=== PATIENT | male | born 1960 | race Caucasian/White ===

== ENCOUNTER 2019-06-04 13:08 | Emergency (ER) | payer OTHER, SELFPAY ==
--- NOTE | ~2019-06-04 | XR_ITS ---
EXAMINATION: XR chest 2V DATE: 06/04/2019 13:36 INDICATION: Dizziness. TECHNIQUE: Frontal and lateral views of the chest were obtained. COMPARISON: Chest 2 views 02/11/2017 FINDINGS: The chest demonstrates clear lungs without pneumonia, pleural effusion, or pneumothorax. Th e heart size is normal. IMPRESSION: 1. No acute cardiopulmonary disease. Reviewed, dictated and finalized at location A. [employer]
--- NOTE | 2019-06-04 13:12 | ECG_ITS ---
Measurements Intervals [place] Rate: 112 P: 61 SC: 208 QRS: -14 QRSD: 101 T: 107 QT: 320 QTc: 438 Interpretive Statements SINUS TACHYCARDIA LEFT VENTRICULAR HYPERTROPHY AND ST-T CHANGE BORDERLINE ST-T WAVE ABNORMALITY- ANTEROLATERAL LEADS ABNORMAL ECG Electronically Signed On 06-04-2019 14:18:28 [employer] by Basilio Felix D.O.
--- NOTE | 2019-06-04 13:17 | ED.ARRPALP ---
HPI - Arrhythmia/Palpitations General Chief Complaint: Weakness Stated Complaint: Heart Racing Time Seen by Provider: 06/04/19 13:16 Source: patient and RN notes reviewed Mode of arrival: ambulatory Limitations: no limitations History of Present Illness HPI narrative: A 58 y/o male presents to the ED with a rapid heart rate and palpitations beginning this morning. He states that his resting HR was between 100-110 and that he felt it palpitating this morning. He reports associated dizziness beginning today. He notes some chest congestion, SOB, a productive cough, chills, and a subjective fever since last night. He denies any N/V/D, body aches, CP, leg edema, or calf pain. MD complaint: rapid heart beat and palpitations Onset (ago): hour(s) (this morning) Context: occurred during rest Associated symptoms: cough (productive) and other (dizziness, chest congestion, SOB, chills, and a subjective fever) Related Data Home Medications Medication Instructions Recorded Confirmed fluticasone propionate 50 2 spray NASAL DAILY ml 02/15/19 mcg/actuation nasal spray,suspension lisinopril 20 mg tablet 20 mg PO DAILY 02/15/19 metoprolol tartrate 50 mg tablet 50 mg PO Q12H 02/15/19 Allergies Allergy/AdvReac Type Severity Reaction Status Date / Time albuterol Allergy Unknown Unknown Verified 06/04/19 13:30 fexofenadine Allergy Unknown Unknown Verified 06/04/19 13:30 mometasone furoate Allergy Unknown Unknown Verified 06/04/19 13:30 montelukast Allergy Unknown Unknown Verified 06/04/19 13:30 morphine Allergy Unknown Unknown Verified 06/04/19 13:30 Review of Systems Review of Systems: All systems reviewed & are unremarkable except as noted in HPI and below Constitutional: Constitutional: Denies body ache(s), Reports chills and Reports fever(s) (subjective) Cardiovascular: Cardiovascular: Denies chest pain, Reports rapid heart rate, Denies leg edema and Reports palpitations Respiratory: Respiratory: Reports chest congestion, Reports cough (productive) and Reports dyspnea Gastrointestinal: Gastrointestinal: Denies diarrhea, Denies nausea and Denies vomiting Musculoskeletal: Musculoskeletal: Denies other (calf pain) Neurologic: Reports dizziness PMFSH Past Medical History Medical History Anxiety Asthma Bronchitis Collar bone fracture Diverticulosis Eczema GERD (gastroesophageal reflux disease) History of pneumonia HTN (hypertension) Hx: UTI (urinary tract infection) Mild persistent asthma PAT (paroxysmal atrial tachycardia) Prostate cancer PVC (premature ventricular contraction) Seasonal allergic rhinitis SVT (supraventricular tachycardia) Surgical History Surgical History History of appendectomy Family History Family History Mother Hypertension Sibling Hypertension Father Hypertension Family history of ylsvq-[id number] deficiency Social History Social History Smoking status: Never smoker Alcohol intake: current Gender identity (if verbalized by the patient): Male Exam Const: General: healthy appearing and no acute distress Nutritional Appearance: well nourished HENMT: Mouth: Yes lip normal and Yes moist mucous membranes Eyes: Conjunctivae: conjunctivae normal Pupils: Equal, round and reactive pupils present Resp: Effort & Inspection: normal respiratory effort Auscultation: clear to auscultation bilaterally Cardio: Rate: tachycardic Rhythm: regular rhythm Heart sounds: no murmurs GI: GI Palp: Yes Soft to palpation and No Tenderness to palpation present (GI) Auscultation: normal bowel sounds Back/Spine/Pelvis: Other: Full ROM. Skin: General skin exam: normal color, dry skin and other (warm) Neuro: General: patient oriented x3 (alert) Speech: normal speech Extrem: General: full ROM Psych: Mental
[2019-06-04 13:26] VITALS: BP 116/78; PULSE 112; PULSE 115; RESP 18; TEMP 36.9; O2SAT 97
[2019-06-04 13:29] LABS: Basophils Percent Auto 0.2 % (0.2-1.2); Eosinophils Absolute Auto 0.2 K/mm3 (0-0.3); Eosinophils Percent Auto 2.8 % (0-4.4); Hematocrit 42.2 % (42.0-52.0); Hemoglobin 14.5 g/dL (14.0-18.0); Immature Granulocyte Absolute 0.01 K/mm3 (0.00-0.031); Immature Granulocyte Percent A 0.2 % (0-0.5); Lymphocytes Absolute Auto 0.29 K/mm3 (0.9-3.2); Lymphocytes Percent Auto 5.4 % (18.3-44.2); Mean Corpuscular HGB Conc 34.4 g/dl (32-36); Mean Corpuscular Volume 90.4 fl (80-100); Mean Platelet Volume 11.9 fl (7.4-10.4); Monocytes Absolute Auto 0.5 K/mm3 (0.1-0.6); Monocytes Percent Auto 9.6 % (2.6-8.5); Neutrophils Absolute Auto 4.4 K/mm3 (1.3-6.7); Neutrophils Percent Auto 81.8 % (45.5-73.1); Platelet Count Result 160 k/mm3 (150-375); Red Blood Count 4.67 M/mm3 (4.6-6.20); Red Cell Distribution Width 13.2 % (11.5-14.5); White Blood Count 5.4 K/mm3 (4.5-10.0)
--- NOTE | 2019-06-04 13:35 | PC.NURSE ---
pt found to be flu A positive. Mask applied.
[2019-06-04] MEDS: SODIUM CHLORIDE 0.9% IV 1,000 ML 999 ML IV CONT (13:39)
[2019-06-04 13:40] VITALS: BP 101/74; PULSE 106; RESP 18; O2SAT 95
[2019-06-04 13:41] VITALS: BP 114/83; PULSE 104
[2019-06-04 13:42] VITALS: BP 118/78; PULSE 114
[2019-06-04 13:43] VITALS: BP 118/81; PULSE 119
[2019-06-04 13:48] LABS: Alanine Aminotransferase 30 U/L (4-50); Albumin Level 4.5 g/dL (3.5-5.1); Alkaline Phosphatase 60 U/L (38-126); Aspartate Amino Transferase 29 U/L (17-59); Bilirubin,Total 0.9 mg/dL (0.2-1.3); Blood Urea Nitrogen 20 mg/dL (9-20); Calcium 9.2 mg/dL (8.4-10.2); Carbon Dioxide 23 mmol/L (22-30); Chloride 102 mmol/L (98-107); Estimated CRCL calculation 120 ml/min; Estimated Glomerular Filt Rate > 60; Glucose 109 mg/dL (75-110); Potassium 3.9 mmol/L (3.4-5.0); Sodium 142 mmol/L (137-145)
[2019-06-04 14:26] LABS: Add Urine Microscopic? NO; Appearance Urine Clear (Clear); Bilirubin Urine Negative (Negative); Blood Urine Negative (Negative); Color Urine Yellow (Yellow); Glucose Urine UA Negative (Negative); Ketones Urine Negative (Negative); Leukocyte Esterase Ur Negative LEU/UL (Negative); Nitrate Urine Negative (Negative); Protein Urine Negative (Negative); Specific Grav Ur 1.011 (1.001-1.035); Urobilinogen Urine Negative mg/dL (<2.0)
[2019-06-04] MEDS: OSELTAMIVIR PHOSPHATE 75 MG CAP PO (15:11)
[2019-06-04 15:15] VITALS: BP 136/72; PULSE 72; RESP 18; O2SAT 97
== END 2019-06-04 15:20 | disposition home or self-care (01) ==
PROVIDERS: Emergency Medicine; Emergency Provider Emergency Medicine; PCP Family Medicine
DX: J10.1 Influenza due to other identified influenza virus with other respiratory manifestations (principal); K21.9 Gastro-esophageal reflux disease without esophagitis; I10 Essential (primary) hypertension; Z87.440 Personal history of urinary (tract) infections; Z85.46 Personal history of malignant neoplasm of prostate; J45.30 Mild persistent asthma, uncomplicated
CPT/HCPCS: 36415; 71046; 80053; 81003; 85025; 87804; 93005; 96360; 96361; 99283; A9270; J7030

== ENCOUNTER 2019-10-29 03:08 | Emergency (ER) | payer OTHER, SELFPAY ==
--- NOTE | ~2019-10-29 | XR_ITS ---
EXAMINATION: XR chest 2V EXAM DATE: 10/29/2019 03:29 INDICATION: Mid chest pain. TECHNIQUE: Frontal and lateral projections of the chest obtained and reviewed. Comparison is made to prior examination from 06/04/2019. FINDINGS: The lungs are clear. There are no pleural effusions. The cardiomediastinal silhouette is within normal limits. There is no pneumothorax suspected. The bones and soft tissues are unremarkab le. IMPRESSION: Unremarkable chest x-ray exam. Reviewed, dictated and finalized at location A.
--- NOTE | 2019-10-29 03:09 | ECG_ITS ---
Measurements Intervals [place] Rate: 130 P: RI: 0 QRS: -22 QRSD: 102 T: 72 QT: 308 QTc: 454 Interpretive Statements SUPRAVENTRICULAR TACHYCARDIA FREQUENT VENTRICULAR PREMATURE COMPLEXES LEFT VENTRICULAR HYPERTROPHY AND ST-T CHANGE CONSIDER INFERIOR INFARCT, AGE INDETERMINATE ABNORMAL ECG Electronically Signed On 10-29-2019 7:07:10 CDT by Basilio Felix D.O.
[2019-10-29 03:12] VITALS: BP 177/117; PULSE 126; RESP 14; TEMP 37.2; O2SAT 100
--- NOTE | 2019-10-29 03:17 | ED.GENADULT ---
HPI - General Adult General Chief complaint: Chest Pain Stated complaint: chest pain Time Seen by Provider: 10/29/19 03:09 History of Present Illness HPI narrative: He presents to the ED with abdominal pain, chest pain, and heart palpitations. He says that he has been having issues with his abdomen for a few weeks. Tonight this spread up into his chest and his heart began racing. He reports that he has a history of PVCs. He is on metoprolol for this. Related Data Home Medications Medication Instructions Recorded Confirmed fluticasone propionate 50 2 spray NASAL DAILY ml 02/15/19 mcg/actuation nasal spray,suspension lisinopril 20 mg tablet 20 mg PO DAILY 02/15/19 metoprolol tartrate 50 mg tablet 50 mg PO Q12H 02/15/19 Allergies Allergy/AdvReac Type Severity Reaction Status Date / Time albuterol Allergy Unknown Unknown Verified 06/04/19 13:30 fexofenadine Allergy Unknown Unknown Verified 06/04/19 13:30 mometasone furoate Allergy Unknown Unknown Verified 06/04/19 13:30 montelukast Allergy Unknown Unknown Verified 06/04/19 13:30 morphine Allergy Unknown Unknown Verified 06/04/19 13:30 Review of Systems Review of Systems: All systems reviewed & are unremarkable except as noted in HPI and below Constitutional: Constitutional: Reports fever(s) Cardiovascular: Cardiovascular: Reports chest pain and Reports rapid heart rate Respiratory: Respiratory: Denies dyspnea Gastrointestinal: Gastrointestinal: Reports abdominal pain and Reports nausea Musculoskeletal: Musculoskeletal: Denies back pain PMFSH Past Medical History Medical History Anxiety Asthma Bronchitis Collar bone fracture Diverticulosis Eczema GERD (gastroesophageal reflux disease) History of pneumonia HTN (hypertension) Hx: UTI (urinary tract infection) Mild persistent asthma PAT (paroxysmal atrial tachycardia) Prostate cancer PVC (premature ventricular contraction) Seasonal allergic rhinitis SVT (supraventricular tachycardia) Surgical History Surgical History History of appendectomy Family History Family History Mother Hypertension Sibling Hypertension Father Hypertension Family history of [id number] deficiency Social History Social History Smoking status: Never smoker Alcohol intake: current Gender identity (if verbalized by the patient): Male Exam Const: General: healthy appearing, no acute distress and alert Orientation/consciousness: patient oriented x3 HENMT: Head: normal to inspection Neck: Neck: normal visual inspection and no lymphadenopathy Chest: Chest palpation & inspection: no tenderness Resp: Effort & Inspection: normal respiratory effort Auscultation: clear to auscultation bilaterally, no rales, no rhonchi and no wheezes Cardio: Jugular venous distension: no JVD Rate: tachycardic Rhythm: abnormal rhythm irregularly irregular Heart sounds: no murmurs GI: Inspection: non-distended GI Palp: Yes Soft to palpation and No Tenderness to palpation present (GI) Skin: General skin exam: normal color Neuro: General: patient oriented x3 and moves all extremities Speech: normal speech Extrem: General: no edema Psych: Appearance: well kempt Affect: Anxious affect present Course Vital Signs Vital signs: Vital Signs Temperature 37.2 C 10/29/19 03:12 Pulse Rate 126 H 10/29/19 03:12 Respiratory Rate 14 10/29/19 03:12 Blood Pressure 177/117 H 10/29/19 03:12 Pulse Oximetry 100 10/29/19 03:12 Temperature 37.2 C 10/29/19 03:12 Pulse Rate 77 10/29/19 06:41 Respiratory Rate 18 10/29/19 06:41 Blood Pressure 129/70 10/29/19 06:41 Pulse Oximetry 98 10/29/19 06:41 Medical Decision Making MDM Narrative Medical decision making narr
[2019-10-29] MEDS: ASPIRIN 81 MG CHEWABLE TABLET 324 MG PO (03:29)
[2019-10-29 03:30] LABS: Basophils Absolute Auto 0.1 K/mm3 (0.0-0.1); Basophils Percent Auto 0.7 % (0.2-1.2); Eosinophils Absolute Auto 0.4 K/mm3 (0-0.3); Eosinophils Percent Auto 4.3 % (0-4.4); Hematocrit 44.2 % (42.0-52.0); Hemoglobin 15.4 g/dL (14.0-18.0); Immature Granulocyte Absolute 0.01 K/mm3 (0.00-0.031); Immature Granulocyte Percent A 0.1 % (0-0.5); Lymphocytes Absolute Auto 2.95 K/mm3 (0.9-3.2); Lymphocytes Percent Auto 33.6 % (18.3-44.2); Mean Corpuscular HGB Conc 34.8 g/dl (32-36); Mean Corpuscular Hemoglobin 31.2 pg (26-34); Mean Corpuscular Volume 89.5 fl (80-100); Mean Platelet Volume 11.4 fl (7.4-10.4); Monocytes Absolute Auto 0.8 K/mm3 (0.1-0.6); Neutrophils Absolute Auto 4.6 K/mm3 (1.3-6.7); Neutrophils Percent Auto 52.3 % (45.5-73.1); Platelet Count Result 196 k/mm3 (150-375); Red Blood Count 4.94 M/mm3 (4.6-6.20); Red Cell Distribution Width 13.4 % (11.5-14.5); White Blood Count 8.8 K/mm3 (4.5-10.0)
[2019-10-29 03:31] VITALS: PULSE 111
[2019-10-29] MEDS: NITROGLYCERIN SL 0.4 MG TABLET SUBLINGUAL (03:31)
[2019-10-29] MEDS: METOPROLOL TARTRATE INJ 5 MG/5 ML VIAL IV PUSH (03:31)
[2019-10-29 03:42] LABS: Alanine Aminotransferase 36 U/L (4-50); Albumin Level 4.5 g/dL (3.5-5.1); Alkaline Phosphatase 57 U/L (38-126); Anion Gap 12.9 mmol/L (7-16); Aspartate Amino Transferase 25 U/L (17-59); Bilirubin,Total 0.6 mg/dL (0.2-1.3); Blood Urea Nitrogen 22 mg/dL (9-20); Calcium 9.3 mg/dL (8.4-10.2); Carbon Dioxide 26 mmol/L (22-30); Chloride 102 mmol/L (98-107); Estimated Glomerular Filt Rate > 60; Glucose 113 mg/dL (75-110); Lipase 73 U/L (23-300); Potassium 3.9 mmol/L (3.4-5.0); Sodium 137 mmol/L (137-145)
[2019-10-29 03:48] LABS: INR 1.1; Prothrombin Time 13.4 Seconds (11.1-14.7)
[2019-10-29 03:49] LABS: Partial Thromboplastin Time 27.5 SECONDS (22.3-36.8)
[2019-10-29 03:52] LABS: Troponin I < 0.012 ng/mL (0.000-0.034)
[2019-10-29 04:20] VITALS: BP 128/88; PULSE 75; RESP 18; O2SAT 100
[2019-10-29 06:25] LABS: Troponin I < 0.012 ng/mL (0.000-0.034)
[2019-10-29 06:41] VITALS: BP 129/70; PULSE 77; RESP 18; O2SAT 98
== END 2019-10-29 06:42 | disposition home or self-care (01) ==
PROVIDERS: Emergency Provider Emergency Medicine; PCP Family Medicine
DX: R07.9 Chest pain, unspecified (principal); I49.3 Ventricular premature depolarization; J45.909 Unspecified asthma, uncomplicated; K21.9 Gastro-esophageal reflux disease without esophagitis; I10 Essential (primary) hypertension; Z87.440 Personal history of urinary (tract) infections; Z85.46 Personal history of malignant neoplasm of prostate; I47.1 Supraventricular tachycardia; I51.7 Cardiomegaly; R94.31 Abnormal electrocardiogram [ECG] [EKG]
CPT/HCPCS: 36415; 71046; 80053; 83690; 84484; 85025; 85610; 85730; 93005; 96374; 99284; A9270

== ENCOUNTER 2020-06-13 14:13 | Emergency (ER) | payer OTHER, SELFPAY ==
[2020-06-13 14:20] VITALS: BP 175/95; PULSE 69; RESP 18; TEMP 36.3; O2SAT 100
--- NOTE | 2020-06-13 14:39 | ED.DENTAL ---
HPI - Dental/Oral General Chief complaint: Dental/Oral Stated complaint: broke tooth Time Seen by Provider: 06/13/20 14:29 Source: patient Mode of arrival: ambulatory Limitations: no limitations History of Present Illness HPI Narrative: 59-year-old with a history of hypertension here with complaints of dental pain for last 2 days. Patient states that while he was driving his tooth fractured ever since then he has been increased amount of pain denies any fever complains of minor swelling on the right side of the mandible. Patient also states that he has an appointment to see the dentist next week MD Complaint: tooth pain Onset (ago): day(s) (2) Duration: constant Severity: moderate Severity scale (1-10): 7 Relieving factors: nothing Exacerbating factors: nothing Treatment prior to arrival: none Related Data Home Medications Medication Instructions Recorded Confirmed metoprolol tartrate 50 mg tablet 50 mg PO Q12H 02/15/19 Allergies Allergy/AdvReac Type Severity Reaction Status Date / Time albuterol Allergy Unknown Unknown Verified 12/13/19 09:15 fexofenadine Allergy Unknown Unknown Verified 12/13/19 09:15 mometasone furoate Allergy Unknown Unknown Verified 12/13/19 09:15 montelukast Allergy Unknown Unknown Verified 12/13/19 09:15 morphine Allergy Unknown Unknown Verified 12/13/19 09:15 Review of Systems Review of Systems: All systems reviewed & are unremarkable except as noted in HPI and below Constitutional: Constitutional: Reports no additional constitutional complaints ENT: Reports as per HPI Cardiovascular: Cardiovascular: Reports no additional cardiovascular complaints Respiratory: Respiratory: Reports no additional respiratory complaints Gastrointestinal: Gastrointestinal: Reports no additional gastrointestinal complaints Musculoskeletal: Musculoskeletal: Reports no additional musculoskeletal complaints Integumentary/Breasts: Skin/Breast: Reports system reviewed and no additional complaints, except as docu Neurologic: Reports system reviewed and no additional complaints, except as documented [facility] Past Medical History Medical History (Updated 06/13/20 @ 14:45 by Tim Alex MD) Anxiety Asthma Bronchitis Collar bone fracture Diverticulosis Eczema GERD (gastroesophageal reflux disease) History of pneumonia HTN (hypertension) Hx: UTI (urinary tract infection) Mild persistent asthma PAT (paroxysmal atrial tachycardia) Prostate cancer PVC (premature ventricular contraction) Seasonal allergic rhinitis SVT (supraventricular tachycardia) Surgical History Surgical History History of appendectomy Family History Family History Mother Hypertension Sibling Hypertension Father Hypertension Family history of hmqqh-[id number] deficiency Social History Social History (Updated 12/13/19 @ 09:15 by Fouzia Fung) Smoking status: Never smoker Alcohol intake: current Substance use: never Gender identity (if verbalized by the patient): Male Exam Narrative: Exam Narrative: GENERAL: Well-appearing, well-nourished, and in no acute distress. HEAD: Normocephalic, atraumatic. EYES: PERRLA and EOMI. ENT: Nares clear, multiple dental filling#[id number]. Mucous membranes moist. NECK: Supple. CHEST: Clear to auscultation. No respiratory distress. HEART: Regular rate and rhythm. No murmur heard. Normal peripheral pulses. ABDOMEN: Soft, nontender, nondistended, normal active bowel sounds. EXTREMITIES: Normal range of motion. No edema. SKIN: Warm, dry, no rash. NEURO: No focal deficits. Alert and oriented x3. PSYCH: Normal mood and affect. Course Vital Signs Vital signs: Vital Signs Temperature 36.3 C L 06/13/20 14:20 Pulse Rate 69 06/13/20 14:20 Respiratory Rate 18 06/13/20 14:20 Blood Pressure 175/95 H 06/13/20 14:20 Pulse Oximetry 100 06/13/20 14:20
== END 2020-06-13 15:06 | disposition home or self-care (01) ==
PROVIDERS: Emergency Provider Family Medicine; PCP Family Medicine
DX: K02.9 Dental caries, unspecified (principal); I10 Essential (primary) hypertension; K21.9 Gastro-esophageal reflux disease without esophagitis; Z87.440 Personal history of urinary (tract) infections; J45.30 Mild persistent asthma, uncomplicated; Z85.46 Personal history of malignant neoplasm of prostate
CPT/HCPCS: 99283

== ENCOUNTER 2020-07-22 07:59 | Inpatient (IN) | payer OTHER, SELFPAY ==
[2020-07-22] VITALS (16 sets, daily range): BP systolic 116–171; BP diastolic 78–93; PULSE 63–91; RESP 12–20; TEMP 36–36.8; O2SAT 95–100; BMI 35.0
--- NOTE | ~2020-07-22 | XR_ITS ---
EXAMINATION: XR chest 2V DATE: 07/22/2020 08:21 INDICATION: Left neck and chest pain. TECHNIQUE: Frontal and lateral views of the chest were obtained. COMPARISON: Chest 2 views 10/29/2019 FINDINGS: The chest demonstrates clear lungs without pneumonia, pleural effusion, or pneumothorax. Th e heart size is normal. IMPRESSION: 1. No acute cardiopulmonary disease. Reviewed, dictated and finalized at location B.
--- NOTE | 2020-07-22 08:10 | ECG_ITS ---
Measurements Intervals [place] Rate: 89 P: 66 MN: 203 QRS: -19 QRSD: 105 T: 17 QT: 362 QTc: 443 Interpretive Statements SINUS RHYTHM FREQUENT VENTRICULAR PREMATURE COMPLEXES POSSIBLE LEFT ATRIAL ENLARGEMENT INCOMPLETE RIGHT BUNDLE BRANCH BLOCK VOLTAGE CRITERIA FOR LVH INFERIOR INFARCT, AGE INDETERMINATE ABNORMAL ECG Electronically Signed On 07-22-2020 8:15:16 CDT by Basilio Felix D.O.
[2020-07-22] MEDS: ASPIRIN 81 MG CHEWABLE TABLET 324 MG PO (08:13)
--- NOTE | 2020-07-22 08:16 | PC.NURSE ---
Pt to XRAY via stretcher at this time.
[2020-07-22 08:20] LABS: Basophils Percent Auto 0.5 % (0.2-1.2); Eosinophils Absolute Auto 0.4 K/mm3 (0-0.3); Eosinophils Percent Auto 5.1 % (0-4.4); Hematocrit 46.1 % (42.0-52.0); Hemoglobin 15.6 g/dL (14.0-18.0); Immature Granulocyte Absolute 0.01 K/mm3 (0.00-0.031); Immature Granulocyte Percent A 0.1 % (0-0.5); Lymphocytes Absolute Auto 2.15 K/mm3 (0.9-3.2); Lymphocytes Percent Auto 29.4 % (18.3-44.2); Mean Corpuscular HGB Conc 33.8 g/dl (32-36); Mean Corpuscular Hemoglobin 31.2 pg (26-34); Mean Corpuscular Volume 92.2 fl (80-100); Mean Platelet Volume 11.9 fl (7.4-10.4); Monocytes Absolute Auto 0.6 K/mm3 (0.1-0.6); Monocytes Percent Auto 8.2 % (2.6-8.5); Neutrophils Absolute Auto 4.1 K/mm3 (1.3-6.7); Neutrophils Percent Auto 56.7 % (45.5-73.1); Platelet Count Result 185 k/mm3 (150-375); Red Cell Distribution Width 13.1 % (11.5-14.5); White Blood Count 7.3 K/mm3 (4.5-10.0)
[2020-07-22 08:29] LABS: Anion Gap 7 mmol/L (8-16); Blood Urea Nitrogen 13 mg/dL (9-20); Calcium 9.2 mg/dL (8.4-10.2); Carbon Dioxide 27 mmol/L (22-30); Chloride 107 mmol/L (98-107); Estimated CRCL calculation 123 ml/min; Estimated Glomerular Filt Rate > 60; Glucose 108 mg/dL (75-110); Potassium 4.2 mmol/L (3.4-5.0); Sodium 141 mmol/L (137-145)
[2020-07-22 08:31] LABS: INR 0.9; Prothrombin Time 13.1 Seconds (11.1-14.7)
--- NOTE | 2020-07-22 08:31 | ED.CHESTPAIN ---
HPI - Chest Pain General Chief Complaint: Chest Pain Stated Complaint: cp/neck pain Time Seen by Provider: 07/22/20 08:08 Source: patient Mode of arrival: ambulatory Limitations: no limitations History of Present Illness HPI narrative: 60-year-old male Of asthma and hypertension and PVCs Complains of a couple of episodes of left-sided neck pain accompanied by chest pain since noon yesterday First 1 was while he was driving a vehicle and lasted for about 20 minutes Second was this morning upon waking and was accompanied by some nausea but no vomiting and at this time is almost completely resolved He notes that a couple of times in the last month he has had some similar episodes while exerting himself but not every time that he exerts himself He is seen Dr. Gamboa here most recently about a month and a half ago but appears this has been more for the palpitations than for chest discomfort Related Data Allergies Allergy/AdvReac Type Severity Reaction Status Date / Time albuterol Allergy Unknown Unknown Verified 07/22/20 08:14 fexofenadine Allergy Unknown Unknown Verified 07/22/20 08:14 mometasone furoate Allergy Unknown Unknown Verified 07/22/20 08:14 montelukast Allergy Unknown Unknown Verified 07/22/20 08:14 morphine Allergy Unknown Unknown Verified 07/22/20 08:14 Review of Systems Review of Systems: All systems reviewed & are unremarkable except as noted in HPI and below Constitutional: Constitutional: Reports no additional constitutional complaints, Denies chills, Denies fever(s) and Denies headache(s) Eyes: Eyes: Reports no additional eye complaints and Denies change in vision ENT: Denies headache(s) and Denies sore throat Cardiovascular: Cardiovascular: Reports chest pain, Reports radiating jaw, neck or arm pain and Denies dyspnea Respiratory: Respiratory: Denies cough and Denies dyspnea Gastrointestinal: Gastrointestinal: Denies abdominal pain, Denies diarrhea, Reports nausea and Denies vomiting Genitourinary: Genitourinary: Denies dysuria and Denies urinary frequency Musculoskeletal: Musculoskeletal: Denies deformity, Denies arthralgias, Denies joint swelling and Denies numbness Integumentary/Breasts: Skin/Breast: Denies rash and Denies wounds Neurologic: Denies headache(s), Denies focal weakness and Denies numbness Psychiatric: Psychiatric: Reports no additional psychiatric complaints Endocrine: Endocrine: Reports no additional endocrine complaints Hematologic/Lymphatic: Hematologic/Lymphatic: Reports no additional hematologic/lymphatic complaints Allergic/Immunologic: Allergic/Immunologic: Reports no additional allergic/immunologic complaints PENDING S[facility] TO [facility] Past Medical History Medical History (Updated 07/22/20 @ 10:07 by Isaiah Hickey MD) Anxiety Asthma Bronchitis Collar bone fracture Diverticulosis Eczema GERD (gastroesophageal reflux disease) History of pneumonia HTN (hypertension) Hx: UTI (urinary tract infection) Mild persistent asthma PAT (paroxysmal atrial tachycardia) Prostate cancer PVC (premature ventricular contraction) Seasonal allergic rhinitis SVT (supraventricular tachycardia) Surgical History Surgical History History of appendectomy Family History Family History Mother Hypertension Sibling Hypertension Father Hypertension Family history of mpttm-1-rxmuyxvlaox deficiency Social History Social History (Updated 07/10/20 @ 10:17 by Quin Dexter MA) Smoking status: Never smoker Alcohol intake: current Substance use: never Gender identity (if verbalized by the patient): Male Exam Const: General: cooperative, no acute distress and alert Nutritional Appearance: obese Orientation/consciousness: patient oriented x3 (alert) HENMT: Head: normal to inspection, normocephalic and atraumatic Ears: external ears normal General nose exam: no epistaxis Eyes
[2020-07-22 08:32] LABS: Partial Thromboplastin Time 27.5 SECONDS (22.3-36.8)
[2020-07-22 08:41] LABS: Troponin I < 0.012 ng/mL (0.000-0.034)
[2020-07-22] MEDS: NITROGLYCERIN SL 0.4 MG TABLET SUBLINGUAL (08:56)
--- NOTE | 2020-07-22 08:58 | PC.NURSE ---
Pt given 1st SL Nitro tab. Rates pain 2/10 currently.
--- NOTE | 2020-07-22 09:02 | PC.NURSE ---
Pt given 2nd dose of SL Nirto tab at this time. Pt rates pain 04/12. VSS.
--- NOTE | 2020-07-22 09:12 | PC.NURSE ---
Pt not given 3rd SL Nitro tab due to pain 0/10.
--- NOTE | 2020-07-22 11:00 | ADMGEN ---
This patient, Geoffrey Lainez, was admitted to IMU Room 203-01. Patient/family oriented to hospital policies and general routines including ID bracelet, bed and alarms, visiting hours, pain management, procedures, bathroom and other care routines, personal items, smoking policy, room service/diet, and visiting hours. Information on how to activate the Rapid Response Team has been discussed. Patient/Family are encouraged to report perceived risks to care and to ask questions if they do not understand what they are told or what they should do.
[2020-07-22 11:24] LABS: Troponin I < 0.012 ng/mL (0.000-0.034)
[2020-07-22] MEDS: FAMOTIDINE 20 MG/2 ML VIAL IV PUSH ×2 (11:28→20:01)
[2020-07-22 14:46] LABS: Troponin I < 0.012 ng/mL (0.000-0.034)
--- NOTE | 2020-07-22 15:50 | PM.CNCAR ---
Assessment and Plan Assessment and plan (1) Unstable angina: Code(s): I20.0 - Unstable angina Status: Acute Assessment and Plan: Patient does have nitrate responsive chest pain this meets criteria for unstable angina. Continue aspirin. Will give a dose of enoxaparin 1 milligram/kilogram subcu x1 now. Continue to trend cardiac enzymes. Will keep NPO after midnight for coronary angiogram in the morning. Check a lipid panel also. Metoprolol succinate 50 mg p.o. daily to be continued as well as lisinopril. P.r.n. nitroglycerin ordered. Will also check a lipid panel and start atorvastatin 20 mg daily. 2D echocardiogram Doppler will be ordered also (2) Chest pain: Code(s): R07.9 - Chest pain, unspecified Status: Acute Assessment and Plan: As above (3) Hypertension: Code(s): I10 - Essential (primary) hypertension Status: Acute Assessment and Plan: Above goal. Continue metoprolol and initiate lisinopril 20 mg p.o. daily (4) HTN (hypertension): Qualifiers: Hypertension type: essential hypertension Qualified Code(s): I10 - Essential (primary) hypertension Code(s): I10 - Essential (primary) hypertension Status: Chronic (5) PVC (premature ventricular contraction): Code(s): I49.3 - Ventricular premature depolarization Status: Chronic Assessment and Plan: Continue metoprolol. Echocardiogram to be would also. History of Present Illness History of Present Illness Consult date/time: 07/22/20 15:50 Requesting physician: Isaiah Hickey MD Consult reason: chest pain Reason For Visit: chest pain Narrative: Date of service 07/22/2020: History: Patient is a 60-year-old male is history of PSVT, PVCs, hypertension, pulmonary hypertension who follows with Dr. Gamboa and has had frequent PVCs. Workup has included an echocardiogram in the past as well as Holter monitoring. Echocardiogram showed ejection fraction 55-60% with mild LVH and mild pulmonary hypertension with RVSP 37. This is from 2017. He is on metoprolol which controlled his PVCs. He came to hospital this morning because of chest pain. Patient had episode of chest pain yesterday while driving. It started in his left side of his neck and came down to his chest. It lasted a couple minutes and went away spontaneously. It was not associated any nausea, shortness breath or diaphoresis. Today though he woke up and had more of chest and neck pain. It was steady and by 8:00 a.m. it is becoming quite concerning to him so he came to the hospital. He did have associated nausea but no shortness of breath or diaphoresis. He was given sublingual nitroglycerin in the emergency department as well as an aspirin his symptoms did subside. Otherwise recently his not had any recent exertional chest pain, shortness of breath, syncope, presyncope, paroxysmal nocturnal dyspnea, orthopnea, edema or palpitations. He does have occasional heartburn symptoms but his chest and neck pain was different than his typical heartburn symptoms. Review of Systems Review of Systems: All systems reviewed & are unremarkable except as noted in HPI and below Constitutional: Constitutional: Denies weakness Eyes: Eyes: Denies blurry vision ENT: Reports Normal hearing present Cardiovascular: Cardiovascular: Reports chest pain and Denies leg edema Respiratory: Respiratory: Denies dyspnea Gastrointestinal: Gastrointestinal: Denies abdominal pain Genitourinary: Genitourinary: Denies dysuria and Denies urinary frequency Musculoskeletal: Musculoskeletal: Denies back pain and Denies neck pain Integumentary/Breasts: Skin/Breast: Denies dry skin and Denies unusual bruising Neurologic: Denies headache(s) Psychiatric: Psychiatric: Denies anxiety and Denies confusion Endocrine: Endocrine: Denies fatigue and Denies flushing Hematologic/Lymphatic: Hematologic/Lymphatic: Denies easy bleeding and Denies easy bruis
--- NOTE | 2020-07-22 15:56 | PM.IMHP ---
H&P: HPI History of Present Illness Date/Time: 07/22/20 15:56 Chest pain Pt describes chest pain ongoing comes and goes several episodes today once in the morning, once when driving and once again in the hospital, pt describes it as chest pain going up up to her neck relieved by nitroglycerin, Troponin is normal so far and ekg shows PVC, LVH and RBBB Pt has a history asthma and hypertension and PVCs, Pt sees DR Gamboa cardiology. Pt appears slightly overnight. Associated chest pain with nausea. Dr Hooks police or patrol park officer in the room discussing with the patient. Pt denies smoking drinks occasionally Chief Complaint: CHEST PAIN Review of Systems Review of Systems: All systems reviewed & are unremarkable except as noted in HPI and below PMFSH Past Medical History Medical History (Updated 07/22/20 @ 16:05 by Giuliana Diehl MD) Anxiety Asthma Bronchitis Collar bone fracture Diverticulosis Eczema GERD (gastroesophageal reflux disease) History of pneumonia HTN (hypertension) Hx: UTI (urinary tract infection) Mild persistent asthma PAT (paroxysmal atrial tachycardia) Prostate cancer PVC (premature ventricular contraction) Seasonal allergic rhinitis SVT (supraventricular tachycardia) Surgical History Surgical History History of appendectomy Family History Family History Mother Hypertension Sibling Hypertension Father Family history of [id number] deficiency Hypertension Acute myocardial infarction Cerebrovascular accident Social History Social History Smoking status: Never smoker Alcohol intake: never Substance use: never Substance use type: does not use Gender identity (if verbalized by the patient): Male Spiritual care concerns: No Meds Home Medications and Allergies Home Medications Medication Instructions Recorded Confirmed Type lisinopril 20 mg tablet 20 mg PO DAILY #90 tablet 12/16/19 07/22/20 Rx fluticasone propion-salmeterol 1 inh INHALATION Q12H 07/22/20 07/22/20 History [Advair Diskus] fluticasone propionate 2 spray INTRANASAL DAILY 07/22/20 07/22/20 History levalbuterol tartrate 2 inh INHALATION Q6H PRN 07/22/20 07/22/20 History metoprolol succinate 50 mg PO DAILY 07/22/20 07/22/20 History Allergies Allergy/AdvReac Type Severity Reaction Status Date / Time albuterol Allergy Unknown Unknown Verified 07/22/20 08:14 fexofenadine Allergy Unknown Unknown Verified 07/22/20 08:14 mometasone furoate Allergy Unknown Unknown Verified 07/22/20 08:14 montelukast Allergy Unknown Unknown Verified 07/22/20 08:14 morphine Allergy Unknown Unknown Verified 07/22/20 08:14 Vital Signs Vital Signs - 24 hr 07/22/20 08:02 07/22/20 08:11 07/22/20 08:34 Temperature 36.5 C Pulse Rate 78 84 Respiratory Rate 14 Blood Pressure 171/89 H Pulse Oximetry 99 100 07/22/20 08:55 07/22/20 09:01 07/22/20 09:07 Temperature Pulse Rate 69 84 85 Respiratory Rate 12 17 17 Blood Pressure 144/93 H 145/91 H 116/82 Pulse Oximetry 97 95 97 07/22/20 10:25 07/22/20 11:25 07/22/20 12:00 Temperature 36.0 C L Pulse Rate 65 69 91 Respiratory Rate 16 16 Blood Pressure 124/85 141/79 H Pulse Oximetry 98 100 07/22/20 14:00 Temperature Pulse Rate 78 Respiratory Rate Blood Pressure Pulse Oximetry Exam Const: General: other (OVERWEIGHT ) Nutritional Appearance: well nourished HENMT: Head: normocephalic Eyes: General: appearance normal, both eyes and all related structures Pupils: Equal, round and reactive pupils present Neck: Neck: supple Chest: Chest palpation & inspection: normal inspection of the chest Resp: Effort & Inspection: normal respiratory effort Auscultation: clear to auscultation bilaterally Cardio: Jugular venous distension: no JVD Rhythm: regular rhythm Hear
[2020-07-22 16:14] LABS: Cholesterol 141 mg/dL (0-200); HDL Direct 30 mg/dL; Triglycerides 150 mg/dL (<150)
[2020-07-22 16:26] LABS: LDL Cholesterol Direct 77 mg/dL
[2020-07-22] MEDS: ENOXAPARIN 120 MG/0.8 ML SYRINGE SUB-Q (16:53)
[2020-07-22] MEDS: ACETAMINOPHEN 325 MG TABLET 650 MG PO (20:02)
[2020-07-22] MEDS: LEVALBUTEROL HFA (*SP) 15 GM INHALER 2 PUFF INHALATION (20:49)
[2020-07-22] MEDS: FLUTICASONE/SALMETEROL 45-21 MCG INHALER 1 PUFF 2 PUFF INHALATION (20:49)
[2020-07-23] VITALS (16 sets, daily range): BP systolic 119–147; BP diastolic 77–91; PULSE 63–85; RESP 10–19; TEMP 36.6–37.1; O2SAT 94–100
--- NOTE | 2020-07-23 | ECHO_ITS ---
Patient Info Name: Geoffrey Lainez Age: 60 years : 1960 Gender: Male Ht: 74 in Wt: 272 lbs BSA: 2.58 m2 HR: 69 bpm BP: 128 / 84 mmHg Heart Rhythm: Sinus Rhythm Technical Quality: Good Exam Date: 07/23/2020 8:01 AM Exam Location: [facility] Patient Status: Inpatient Admit Date: 07/22/2020 Staff Ordering Physician: Garcia Hooks MD Clinical Psychologist Private Practice: [facility] RDCS, RT Attending Provider: Giuliana Diehl MD Referring Physician: Neva CARRILLO; Exam Type: CA echo doppler color flow Study Info Indications R07.89 - Other chest pain Complete two-dimensional, color flow and Doppler transthoracic echocardiogram is performed with contrast to opacify the left ventricle and to improve the deliniation of the left ventricle endocardial borders. Summary 1. Left ventricular chamber dimension is normal. 2. Left ventricular systolic function is normal, estimated at 65-70%. 3. There is mildly increased left ventricular wall thickness. 4. The left ventricular diastolic function is abnormal. 5. There is mild mitral valve regurgitation. 6. There is mild tricuspid valve regurgitation. 7. There is mild pulmonic regurgitation. Left Ventricle Left ventricular chamber dimension is normal. Left ventricular systolic function is normal, estimated at 65-70%. There is mildly increased left ventricular wall thickness. Left ventricular septal wall motion is normal. The left ventricular diastolic function is abnormal. Right Ventricle Right ventricular chamber dimension is normal. Right ventricular systolic function is normal. Left Atria Left atrial chamber dimension is normal. Right Atria Right atrial chamber dimension is normal. Atrial Septum Intact interatrial septum visualized by color flow imaging. Aortic Valve The aortic valve is trileaflet. There is mild aortic valve sclerosis. There is no aortic valve stenosis. There is trace aortic valve regurgitation. Pulmonic Valve The pulmonic valve is normal. There is no pulmonic valve stenosis. There is mild pulmonic regurgitation. Mitral Valve The mitral valve has normal leaflets. There is no mitral valve stenosis. There is mild mitral valve regurgitation. Tricuspid Valve The tricuspid valve leaflets are normal. There is no significant tricuspid valve stenosis. There is mild tricuspid valve regurgitation. Pericardium/Pleural The pericardium appears normal. There is no pericardial effusion. Inferior Vena Cava Normal inferior vena cava with >50% collapse upon inspiration consistent with normal right atrial pressure, 5 mmHg. Aorta The aortic root size at the sinus of Valsalva is normal. The prox ascending aorta size is normal. Left Ventricular Outflow Tract Name Value Normal LVOT 2D LVOT Diameter 2.3 cm LVOT Doppler LVOT Peak Gradient 6 mmHg LVOT Mean Gradient 3 mmHg LVOT VTI 26 cm LVOT VTI/AV VTI Ratio 0.9 LVOT Stroke Volume 112 ml LVOT CO
[2020-07-23] MEDS: FLUTICASONE PROPIONATE 0.05% NA SPR 16 GM BTL (*BKC) 2 SPRAY NASAL (07:46)
[2020-07-23] MEDS: ASPIRIN 81 MG CHEWABLE TABLET PO (07:46)
[2020-07-23] MEDS: ATORVASTATIN 20 MG TABLET PO (07:46)
[2020-07-23] MEDS: METOPROLOL SUCCINATE EXT REL 50 MG TABCR PO (07:46)
[2020-07-23] MEDS: FAMOTIDINE 20 MG/2 ML VIAL IV PUSH (07:46)
[2020-07-23] MEDS: lisinopriL 20 MG TABLET PO (07:49)
[2020-07-23] MEDS: FLUTICASONE/SALMETEROL 45-21 MCG INHALER 1 PUFF 2 PUFF INHALATION (07:50)
[2020-07-23] MEDS: PERFLUTREN LIPID MICROSPHERES 1.5 ML VIAL DILUTED TO 10 ML TOTAL VOLUME IV PUSH (08:34)
--- NOTE | 2020-07-23 11:34 | WPDHPUPDATE1 ---
History and Physical Update Update Date/Time: 07/23/20 11:34 History and Physical has been reviewed, including an updated exam of the patient. There are NO changes in the patient's condition. Risks, benefits, and alternatives have been discussed and questions answered. Patient agrees to proceed with procedure.
--- NOTE | 2020-07-23 11:34 | WPDMODSED ---
Moderate Sedation Note-Pt Data Patient Data Allergies Allergy/AdvReac Type Severity Reaction Status Date / Time albuterol Allergy Unknown Unknown Verified 07/22/20 08:14 fexofenadine Allergy Unknown Unknown Verified 07/22/20 08:14 mometasone furoate Allergy Unknown Unknown Verified 07/22/20 08:14 montelukast Allergy Unknown Unknown Verified 07/22/20 08:14 morphine Allergy Unknown Unknown Verified 07/22/20 08:14 Home Medications Medication Instructions Recorded Confirmed Type lisinopril 20 mg tablet 20 mg PO DAILY #90 tablet 12/16/19 07/22/20 Rx fluticasone propion-salmeterol 1 inh INHALATION Q12H 07/22/20 07/22/20 History [Advair Diskus] fluticasone propionate 2 spray INTRANASAL DAILY 07/22/20 07/22/20 History levalbuterol tartrate 2 inh INHALATION Q6H PRN 07/22/20 07/22/20 History metoprolol succinate 50 mg PO DAILY 07/22/20 07/22/20 History Current Medications: Active Medications Acetaminophen (Acetaminophen 325 Mg Tablet) 650 mg PO Q4H PRN PRN Reason: Mild Pain (1-3) or Fever Last Admin: 07/22/20 20:02 Dose: 650 mg Documented by: Aspirin (Aspirin 81 Mg Chewable Tablet) 81 mg PO DAILY@0800 [facility] Last Admin: 07/23/20 07:46 Dose: 81 mg Documented by: Atorvastatin Calcium (Atorvastatin 20 Mg Tablet) 20 mg PO DAILY [facility] Last Admin: 07/23/20 07:46 Dose: 20 mg Documented by: Famotidine (Famotidine 20 Mg/2 Ml Vial) 20 mg IV PUSH Q12HR [facility] Last Admin: 07/23/20 07:46 Dose: 20 mg Documented by: Fluticasone Propionate (Fluticasone Propionate 0.05% Na Spr 16 Gm Btl (*Bkc)) 2 spray NASAL DAILY [facility] Last Admin: 07/23/20 07:46 Dose: 2 spray Documented by: Levalbuterol HCl (Levalbuterol Hfa (*Sp) 15 Gm Inhaler) 2 puff INHALATION Q6H PRN PRN Reason: Shortness Of Breath Last Admin: 07/22/20 20:49 Dose: 2 puff Documented by: Lisinopril (Lisinopril 20 Mg Tablet) 20 mg PO DAILY [facility] Last Admin: 07/23/20 07:49 Dose: 20 mg Documented by: Metoprolol Succinate (Metoprolol Succinate Ext Rel 50 Mg Tabcr) 50 mg PO DAILY [facility] Last Admin: 07/23/20 07:46 Dose: 50 mg Documented by: Nitroglycerin (Nitroglycerin Sl 0.4 Mg Tablet) 0.4 mg SUBLINGUAL Q5MIN PRN PRN Reason: Chest Pain Ondansetron HCl (Ondansetron Inj 4 Mg/2 Ml Vial) 4 mg IV PUSH Q4H PRN PRN Reason: Nausea Fluticasone/Salmeterol (Fluticasone/Salmeterol 45-21 Mcg Inhaler 1 Puff) 2 puff INHALATION Q12HRT [facility] Last Admin: 07/23/20 07:50 Dose: 2 puff Documented by: Sedation/Anesthesia: No previous sedation/anesthesia problems (including family history). PMFSH Past Medical History Medical History Anxiety Asthma Bronchitis Collar bone fracture Diverticulosis Eczema GERD (gastroesophageal reflux disease) History of pneumonia HTN (hypertension) Hx: UTI (urinary tract infection) Mild persistent asthma PAT (paroxysmal atrial tachycardia) Prostate cancer PVC (premature ventricular contraction) Seasonal allergic rhinitis SVT (supraventricular tachycardia) Surgical History Surgical History History of appendectomy Family History Family History Mother Hypertension Sibling Hypertension Father Family history of bsaco-[id number]-ngalncwwiyk deficiency Hypertension Acute myocardial infarction Cerebrovascular accident Social History Social History Smoking status: Never smoker Alcohol intake: never Substance use: never Substance use type: does not use Gender identity (if verbalized by the patient): Male Spiritual care concerns: No Mod Sed Physical Exam Physical Exam Pre Procedural Exam: Normal: Appearance, Eyes, Ears, Nose, Neck, Throat, Airway, Lungs, Heart Size, Heart Rate, Heart Rhythm, Neuro Exam, Abdomen, Liver, Kidneys, Spleen, Breasts, Genitalia, Extremities and Skin Hours since solid foods: 8 Hours since liqui
--- NOTE | 2020-07-23 11:35 | WPDCARDPROC ---
Cardiac Cath Procedure Note Date of procedure:: 07/23/20 Performing physician:: Jaylin Barlow MD date of service: 07/23/2020 Indication:: chest pain Brief clinical history:: Patient is a 60-year-old male is history of PSVT, PVCs, hypertension, pulmonary hypertension who follows with Dr. Gamboa and has had frequent PVCs. Workup has included an echocardiogram in the past as well as Holter monitoring. Echocardiogram showed ejection fraction 55-60% with mild LVH and mild pulmonary hypertension with RVSP 37. This is from 2017. He is on metoprolol which controlled his PVCs. He came to hospital this morning because of chest pain. Patient had episode of chest pain yesterday while driving. It started in his left side of his neck and came down to his chest. It lasted a couple minutes and went away spontaneously. It was not associated any nausea, shortness breath or diaphoresis. Today though he woke up and had more of chest and neck pain. It was steady and by 8:00 a.m. it is becoming quite concerning to him so he came to the hospital. He did have associated nausea but no shortness of breath or diaphoresis. He was given sublingual nitroglycerin in the emergency department as well as an aspirin his symptoms did subside. Otherwise recently his not had any recent exertional chest pain, shortness of breath, syncope, presyncope, paroxysmal nocturnal dyspnea, orthopnea, edema or palpitations. He does have occasional heartburn symptoms but his chest and neck pain was different than his typical heartburn symptoms. Procedure Procedure performed:: 1-Moderate sedation that started at 11:55 a.m.and ended at 12:25 p.m. using 3mg of Versed and 75mcg fentanyl. The registered nurse was richelle pinto RN. 2-Selective left and right coronary angiogram. 3-Left heart catheterization with measurement of LVEDP and measurement of gradient across aortic valve. 4- LV angiogram. 5-Right common femoral arterial angiogram. 6-Deployment of 6 [place] Angio-Seal. Sedation/Medication given:: Moderate sedation. Access site:: Right common femoral artery. Estimated blood loss:: 10cc Procedure note:: After informed consent patient was brought in to sleep lab technician with the was draped and prepped in usual manner. Moderate sedation was given and the right groin was infiltrated using 1% lidocaine. Five [place] sheath was obtained using micropuncture needle and the modified Seldinger technique. Selective left coronary angiogram was done using JL4 catheter with the tip of the catheter placed in the left main coronary artery. Selective right coronary angiogram was done using JR4 catheter with the tip of the catheter placed to the right coronary artery. After that 5 [place] pigtail catheter was advanced across the aortic valve into the left ventricle with measurement of LVEDP and measurement of gradient across aortic valve. Right common femoral arterial angiogram was done. Findings:: 1- left coronary artery is a large artery that divides into large LAD, large circumflex artery. Left main is free of disease. 2- left anterior descending artery is a large artery that runs and wraps around the apex. It is free of disease. Medium-sized diagonal branch is free of disease. 3- leftcircumflex artery is a large artery And codominant and free of disease. In the mid segment medium-size OM1 branch that is free of disease and distal left PDA free of disease. 4- right coronary artery is Large artery and codominant and free of disease. 5- LVEDP was 15 mm Hg and no gradient across aortic valve. 6- opening arterial pressure was 150/80 and closing pressure was 120/80 7- LV angiogram shows normal LV systolic function with estimated ejection fraction 70%. Ascending aorta looks within the normal limits. 8- right femoral artery angiogram shows no significant disease in the right common femoral artery. Conclusion:: no coronary artery disease Assessment and Plan Additional Plan Continue risk factor modification for CAD.
--- NOTE | 2020-07-23 15:25 | PM.DS ---
DS: Admitting Diagnosis Admitting Diagnosis Admitting Diagnosis: CHEST PAIN DS: Discharge Diagnosis Discharge Diagnosis (1) Unstable angina: Code(s): I20.0 - Unstable angina Status: Acute Assessment and Plan: Pt stated on ASA, lovenox bid, NTG pt monitored on telemetry. Cardiology consulted for possible stress test or heart catheterization. Pts heart cath showed no coronary disease. Pt discharged home. (2) Hypertension: Code(s): I10 - Essential (primary) hypertension Status: Chronic Assessment and Plan: Pt is on lisinopril and metoprolol, Bp remains stable. (3) PVC (premature ventricular contraction): Code(s): I49.3 - Ventricular premature depolarization Status: Chronic Assessment and Plan: Known history sees cardiology here today with PVC and intermittent chest pain (4) GERD (gastroesophageal reflux disease): Code(s): K21.9 - Gastro-esophageal reflux disease without esophagitis Status: Acute Assessment and Plan: Pt was discharged on Pepcid for GERD. DS: Summary Hospital Course Hospital Course: Pt describes chest pain ongoing comes and goes several episodes today once in the morning, once when driving and once again in the hospital, pt describes it as chest pain going up up to her neck relieved by nitroglycerin, Troponin is normal so far and ekg shows PVC, LVH and RBBB Pt has a history asthma and hypertension and PVCs, Pt sees Dr Gamboa cardiology. Pt appears slightly overnight. Associated chest pain with nausea. Pt had a heart cath which showed no coronary disease, pt was discharged on pepcid for GERD. Time Spent with Patient Time attestation: Total time spent providing and/or coordinating discharge services:40 minutes on day of discharge Exam Const: General: other (OVERWEIGHT ) Nutritional Appearance: well nourished HENMT: Head: normocephalic Eyes: General: appearance normal, both eyes and all related structures Pupils: Equal, round and reactive pupils present Neck: Neck: supple Chest: Chest palpation & inspection: normal inspection of the chest Resp: Effort & Inspection: normal respiratory effort Auscultation: clear to auscultation bilaterally Cardio: Jugular venous distension: no JVD Rhythm: regular rhythm Heart sounds: S1 normal heart sound present and S2 normal heart sound present GI: Inspection: normal to inspection Auscultation: normal bowel sounds Skin: General skin exam: normal color and dry skin Neuro: Cranial nerves: Yes CN's II-XII intact bilaterally and Yes Equal, round and reactive pupils present Cognition (Neuro): normal cognition Speech: normal speech Motor exam (neuro): 5/5 motor strength present throughout Extrem: General: normal to inspection Psych: Appearance: grossly normal Mental Status: mental status grossly normal DS: Data Data Completed and Pending Labs on day of discharge: Labs from last 24 hours 07/22/20 14:13 Triglycerides 150 Cholesterol 141 LDL Cholesterol Direct 77 HDL Direct 30 Discharge Plan Discharge Attending physician on discharge: Giuliana Diehl Consulting providers: Garcia Hooks ; Jalyin Barlow ; Basilio Felix ; Sarath Argueta V. Discharging Clinician: Giuliana Diehl Anticipated Discharge Date/Time: 07/23/20 15:21 Patient Disposition: Home, Self-Care Activity: as tolerated Diet: heart healthy Discharge Instructions: No driving for 24 hours. No lifting/pushing/pulling more than 10 pounds for 1 week. No strenuous exercise or activity for 1 week. May shower but no tub baths or swimming pools for 1 week. May remove gauze dressing tomorrow and place band aid over site. Observe for redness/swelling/drainage/or bleeding. Wash gently and pat dry when showering. Stand Alone Forms: General Discharge Information Follow-up/Referrals: Abhishek Santoyo MD [Primary Care Provider] - Garcia Hooks MD [Physician] - Discharge Medicati
== END 2020-07-23 16:05 | disposition home or self-care (01) | DRG 287 ==
LOC: ANHED 10:07 → ANHIMU 15:56
PROVIDERS: Internal Medicine Cardiovascular Disease; Admitting Provider Family Medicine; Emergency Provider Emergency Medicine; PCP Family Medicine; Visit Provider Family Medicine
PROC: 4A023N7 Measurement of Cardiac Sampling and Pressure, Left Heart, Percutaneous Approach (ICD-10-PCS; CPT 93452; principal; 2020-07-23 10:00)
PROC: 4A023N7 Measurement of Cardiac Sampling and Pressure, Left Heart, Percutaneous Approach (ICD-10-PCS; 2020-07-23 10:00)
DX: I20.0 Unstable angina (principal); I27.20 Pulmonary hypertension, unspecified; I10 Essential (primary) hypertension; I49.3 Ventricular premature depolarization; J45.30 Mild persistent asthma, uncomplicated; K21.9 Gastro-esophageal reflux disease without esophagitis; Z79.899 Other long term (current) drug therapy
CPT/HCPCS: 36415; 71046; 80048; 80061; 84484; 85025; 85610; 85730; 93005; 93306; 93458; 94640; 96372; 96374; 96375; 96376; 99285; A9270; C1760; C1887; C1894; G0269; G0378; J1644; J1650; J2250; J3010; J7040; Q9957

== ENCOUNTER 2021-04-23 02:00 | Day surgery (SDC) | payer OTHER, SELFPAY ==
[2021-04-09 14:18] VITALS: BMI 34.9
--- NOTE | 2021-04-22 13:49 | P.PNAN_ITS ---
Anes - Initial Pre Proc Eval Procedure: Operation Date: 04/23/21 11:00 Proposed Procedures p Screening Colonoscopy - Isaiah Shell MD Date/Time: 04/22/21 13:49 Surgeon: Isaiah Shell MD Pre Op Diagnosis: neoplasm screening Patient Data Age: 60 Gender: M Height: 1.91 m Weight: 127 kg Allergies Allergy/AdvReac Type Severity Reaction Status Date / Time albuterol Allergy Unknown Unknown Verified 04/23/21 10:20 fexofenadine Allergy Unknown Unknown Verified 04/23/21 10:20 mometasone furoate Allergy Unknown Unknown Verified 04/23/21 10:20 montelukast Allergy Unknown Unknown Verified 04/23/21 10:20 morphine Allergy Unknown Unknown Verified 04/23/21 10:20 Home Medications Medication Instructions Recorded Confirmed Type fluticasone propionate 2 spray INTRANASAL DAILY PRN 07/22/20 04/23/21 History levalbuterol tartrate [Xopenex HFA] 2 inh INHALATION Q6H PRN 07/22/20 04/23/21 History metoprolol succinate 50 mg PO DAILY 07/22/20 04/23/21 History lisinopril 20 mg tablet 20 mg PO DAILY #90 tablet 11/30/20 04/23/21 Rx Patient hx anesthesia problems: none Family hx anesthesia problems: none Results Review: All pre-operative results and documents have been reviewed as part of the pre-operative evaluation. [facility] Past Medical History Medical History (Updated 04/23/21 @ 10:43 by Isaiah Shell MD) Anxiety Asthma Bronchitis Collar bone fracture Diverticulosis Eczema GERD (gastroesophageal reflux disease) History of pneumonia HTN (hypertension) Hx: UTI (urinary tract infection) Mild persistent asthma PAT (paroxysmal atrial tachycardia) Prostate cancer PVC (premature ventricular contraction) Seasonal allergic rhinitis SVT (supraventricular tachycardia) Surgical History Surgical History History of appendectomy Family History Family History Mother Hypertension Sibling Hypertension Father Family history of umiep-4-yrswgzfjlga deficiency Hypertension Acute myocardial infarction Cerebrovascular accident Social History Social History (Updated 01/15/21 @ 08:50 by Fiona Calle MA) Smoking status: Never smoker Alcohol intake: current Alcohol use details: Beer 2X monthly Substance use: never Substance use type: does not use Living arrangements: with family Gender identity (if verbalized by the patient): Male Spiritual care concerns: No Anes - Eval Final PreProcedure Day of Procedure 04/22/21 13:49 Patient weight: obese Heart: regular rate and rhythm Lungs: clear to auscultation and normal air movement Airway: Mallampati scale class II Neurological: alert and oriented Last oral intake: >/= 8 hours ASA classification: III Emergent: no Anesthetic plan: proceed Anesthesia type and monitoring: general GIVS and standard monitoring Results Review: All pre-operative results and documents have been reviewed as part of the pre-operative evaluation. Informed Consent: The patient's anesthetic plan and its attendant risks and benefits were discussed with the patient/family/POA. Questions were solicited and answers provided to the satisfaction of the patient/family/POA.
[2021-04-23 10:12] VITALS: BP 145/88; PULSE 77; RESP 18; TEMP 36.9; O2SAT 99; BMI 35.2
[2021-04-23] MEDS: LACTATED RINGERS 1,000 ML 150 ML IV CONT (10:34)
--- NOTE | 2021-04-23 10:42 | WPDGICN ---
Assessment and Plan Assessment and plan (1) Encounter for screening colonoscopy: Code(s): Z12.11 - Encounter for screening for malignant neoplasm of colon Status: Acute Assessment and Plan: Patient presents for screening colonoscopy. Further recommendations will be given after endoscopy. GI Consult Note Consult date/time: 04/23/21 10:42 HPI: Geoffrey Lainez is a 60 year old male Presents for screening colonoscopy. Patient's current weight appetite bowel movements are normal. He denies abdominal pain. He has had no bleeding. Family history is noncontributory. Review of Systems Review of Systems: All systems reviewed & are unremarkable except as noted in HPI and below PMFSH Past Medical History Medical History (Updated 04/23/21 @ 10:43 by Isaiah Shell MD) Anxiety Asthma Bronchitis Collar bone fracture Diverticulosis Eczema GERD (gastroesophageal reflux disease) History of pneumonia HTN (hypertension) Hx: UTI (urinary tract infection) Mild persistent asthma PAT (paroxysmal atrial tachycardia) Prostate cancer PVC (premature ventricular contraction) Seasonal allergic rhinitis SVT (supraventricular tachycardia) Surgical History Surgical History History of appendectomy Family History Family History Mother Hypertension Sibling Hypertension Father Family history of rfmwt-9-tdkpbawzzor deficiency Hypertension Acute myocardial infarction Cerebrovascular accident Social History Social History (Updated 01/15/21 @ 08:50 by Fiona Calle MA) Smoking status: Never smoker Alcohol intake: current Alcohol use details: Beer 2X monthly Substance use: never Substance use type: does not use Living arrangements: with family Gender identity (if verbalized by the patient): Male Spiritual care concerns: No Meds Home Medications and Allergies Home Medications Medication Instructions Recorded Confirmed Type fluticasone propionate 2 spray INTRANASAL DAILY PRN 07/22/20 04/23/21 History levalbuterol tartrate [Xopenex HFA] 2 inh INHALATION Q6H PRN 07/22/20 04/23/21 History metoprolol succinate 50 mg PO DAILY 07/22/20 04/23/21 History lisinopril 20 mg tablet 20 mg PO DAILY #90 tablet 11/30/20 04/23/21 Rx Allergies Allergy/AdvReac Type Severity Reaction Status Date / Time albuterol Allergy Unknown Unknown Verified 04/23/21 10:20 fexofenadine Allergy Unknown Unknown Verified 04/23/21 10:20 mometasone furoate Allergy Unknown Unknown Verified 04/23/21 10:20 montelukast Allergy Unknown Unknown Verified 04/23/21 10:20 morphine Allergy Unknown Unknown Verified 04/23/21 10:20 Vital Signs Vital Signs - 24 hr 04/23/21 10:12 Temperature 98.5 F Pulse Rate 77 Respiratory Rate 18 Blood Pressure 145/88 H Pulse Oximetry 99 Exam Narrative: Physical exam reveals patient be alert. Vital signs stable. HEENT exam is unremarkable. Patient is anicteric. Lungs are clear to auscultation and percussion. Heart is without murmur or extra sounds. Abdominal exam bowel sounds are present soft nontender with no organomegaly. Digital external rectal exam is normal.
[2021-04-23 11:30] VITALS: BP 98/69; PULSE 73; RESP 16; O2SAT 96
[2021-04-23 11:40] VITALS: BP 99/70; PULSE 75; RESP 16; O2SAT 96
[2021-04-23 11:50] VITALS: BP 103/70; PULSE 72; RESP 14; O2SAT 98
== END 2021-04-23 12:00 | disposition home or self-care (01) ==
PROVIDERS: PCP Family Medicine; Visit Provider Internal Medicine Gastroenterology
PROC: 0DJD8ZZ Inspection of Lower Intestinal Tract, Via Natural or Artificial Opening Endoscopic (ICD-10-PCS; CPT 45378; principal; 2021-04-23 11:00)
DX: Z12.11 Encounter for screening for malignant neoplasm of colon (principal); D17.5 Benign lipomatous neoplasm of intra-abdominal organs; K64.8 Other hemorrhoids; I10 Essential (primary) hypertension; J45.30 Mild persistent asthma, uncomplicated; I47.1 Supraventricular tachycardia; K21.9 Gastro-esophageal reflux disease without esophagitis; F41.9 Anxiety disorder, unspecified; I49.3 Ventricular premature depolarization; Z85.46 Personal history of malignant neoplasm of prostate; Z79.51 Long term (current) use of inhaled steroids; E66.9 Obesity, unspecified; Z68.35 Body mass index [BMI] 35.0-35.9, adult
CPT/HCPCS: 45385; 88305; J2704; J7120

== ENCOUNTER 2022-03-31 09:50 | Outpatient (CLI) | payer OTHER, SELFPAY ==
[2022-03-30 14:15] VITALS: BMI 36.5
[2022-03-31] VITALS (15 sets, daily range): BP systolic 112–145; BP diastolic 70–101; PULSE 77–110; RESP 10–20; TEMP 36.9; O2SAT 95–100; BMI 34.8
--- NOTE | 2022-03-31 10:00 | ECG_ITS ---
Measurements Intervals [place] Rate: 100 P: [place]: 0 QRS: -24 QRSD: 110 T: 6 QT: 325 QTc: 420 Interpretive Statements ATRIAL FIBRILLATION WITH RAPID VENTRICULAR RESPONSE INFERIOR MYOCARDIAL INFARCTION , PROBABLY OLD [40+ ms Q WAVE AND/OR ST/T ABNORMALITY IN II/aVF] COMPARED TO ECG 07/22/2020 08:06:32 ATRIAL FIBRILLATION NOW PRESENT Electronically Signed On 03-31-2022 14:58:37 [employer] by Tono Morrison M.D.
[2022-03-31 10:44] LABS: Anion Gap 7 mmol/L (8-16); Blood Urea Nitrogen 12 mg/dL (9-20); Calcium 8.8 mg/dL (8.4-10.2); Carbon Dioxide 28 mmol/L (22-30); Chloride 103 mmol/L (98-107); Estimated CRCL calculation 119 ml/min; Estimated Glomerular Filt Rate > 60; Glucose 109 mg/dL (65-110); Magnesium 2.2 mg/dL (1.6-2.3); Potassium 4.1 mmol/L (3.4-5.0); Sodium 138 mmol/L (137-145)
--- NOTE | 2022-03-31 11:45 | WPDMODSED ---
Moderate Sedation Note-Pt Data Patient Data Diagnosis: Atrial fibrillation Present Complaint: None History and physical update addendum: Patient is a very pleasant 61-year-old male with a history of SVT, PVCs, prostate cancer, hypertension with recent diagnosis of atrial fibrillation maintained on systemic anticoagulation for greater than 4 weeks without interruption referred for elective cardioversion in attempt to restore sinus rhythm. Impression/plan of care: Symptomatic atrial fibrillation-elective cardioversion. Continue systemic anticoagulation without interruption particularly the next 30 days post cardioversion or unless otherwise advised. Hypertension Procedure to be performed/Plan: Elective electrical cardioversion Allergies Allergy/AdvReac Type Severity Reaction Status Date / Time albuterol Allergy Unknown Unknown Verified 03/31/22 10:17 morphine Allergy Unknown Unknown Verified 03/31/22 10:17 Home Medications Medication Instructions Recorded Confirmed Type levalbuterol tartrate 45 2 inh inhalation Q6H PRN Shortness 07/22/20 03/30/22 History mcg/actuation aerosol inhaler Of Breath (Xopenex HFA) metoprolol succinate 50 mg 50 mg PO HS 07/22/20 03/31/22 History tablet,extended release 24 hr fluticasone propionate 50 2 spray intranasal DAILY PRN 11/15/21 03/30/22 Rx mcg/actuation nasal Allergy Symptoms #16 grams spray,suspension apixaban 5 mg tablet (Eliquis) 5 mg PO BID 03/30/22 03/31/22 History fluticasone 100 mcg-salmeterol 50 See Rx Instructions .Route 03/30/22 03/31/22 History mcg/dose blistr powdr for .COMPLEX PRN Shortness Of Breath inhalation (Advair Diskus) Or Wheezing multivit with minerals-iron 18 1 tablet PO DAILY 03/30/22 03/30/22 History mg-folic ac 400 mcg-vit K 25 mcg tablet (Adults Multivitamin) lisinopril 20 mg tablet 20 mg PO HS 03/31/22 03/31/22 History Current Medications: Active Medications Sodium Chloride (Normal Saline Iv) 1,000 mls @ 30 mls/hr IV CONT .Q24H ROHIT Sedation/Anesthesia: No previous sedation/anesthesia problems (including family history). [facility] Past Medical History Medical History Anxiety Asthma Bronchitis Collar bone fracture Diverticulosis Eczema GERD (gastroesophageal reflux disease) History of pneumonia HTN (hypertension) Hx: UTI (urinary tract infection) Mild persistent asthma PAT (paroxysmal atrial tachycardia) Prostate cancer PVC (premature ventricular contraction) Seasonal allergic rhinitis SVT (supraventricular tachycardia) Surgical History Surgical History History of appendectomy Family History Family History Mother Hypertension Sibling Hypertension Father Family history of fmhmk-3-juzfvbfiutw deficiency Hypertension Acute myocardial infarction Cerebrovascular accident Social History Social History Smoking status: Former smoker Smoking end date: 02/16/02 Alcohol intake: current Alcohol use details: rarely drinks Substance use: never Substance use type: does not use Living arrangements: alone Gender identity (if verbalized by the patient): Male Spiritual care concerns: No Mod Sed Physical Exam Physical Exam Pre Procedural Exam: Normal: Appearance, Eyes, Ears, Nose, Neck (Neck supple, normal range of motion), Throat (Posterior hypopharynx clear, nonerythematous), Airway (Normal anatomy, no obstruction), Lungs (Clear to auscultation bilaterally), Heart Size, Heart Rate (Tachycardic), Heart Rhythm (Irregular irregular), Neuro Exam, Extremities and Skin and Variation: Abdomen (Obese) Hours since solid foods: 12 Hours since liquid intake: 12 Mallampati Classification: class II Internal Medicine - PN: Obj Da Vital Signs Vital Signs: Vital Signs - 24
--- NOTE | 2022-03-31 12:59 | WPDHPUPDATE1 ---
History and Physical Update Update Date/Time: 03/31/22 11:45 History and Physical has been reviewed, including an updated exam of the patient. There are NO changes in the patient's condition. Risks, benefits, and alternatives have been discussed and questions answered. Patient agrees to proceed with procedure.
--- NOTE | 2022-03-31 13:05 | WPDCARDVER ---
Cardioversion Cardioversion Date of procedure: 03/31/22 Procedure: Elective electrical cardioversion Pre-op diagnosis: Atrial fibrillation Post-op diagnosis: Same Indications: Atrial fibrillation Description of procedure: Brief history present illness: Patient is a pleasant 61-year-old male with a history of hypertension, SVT with diagnosis of atrial fibrillation persistent and symptomatic on anticoagulation without interruption for greater than 4 weeks referred for elective electrical cardioversion in attempt to restore sinus rhythm. Procedure in detail: After verbal and written informed consent was obtained the patient risks, benefits, and alternatives explained in detail the patient agreed to proceed with the plan of care as outlined above. Patient was evaluated at bedside [facility]. On examination, neck was supple with normal range of motion, no restrictions to opening of the oral cavity, jaw angle and posterior hypopharynx was clear. Lungs were clear to auscultation. Patient was placed in appropriate 30 to 45 degree angle in a supine position. Patient was monitored throughout the study with telemetry, oxygen saturation, end-tidal CO2 monitoring, blood pressure, heart rate, and respirations. Anterior and posterior defibrillator pads placed in the appropriate positions. After confirmation of adequate sedation electrical cardioversion was carried out without complication. Patient tolerated the procedure well without difficulty. Sedation: Moderate Sedation/Anesthesia administration: Patient denied previous intolerance or complications with anesthesia/sedation. Please see sedation note for documentation of the pre-procedure physical examination. A total of 6mg intravenous Versed and a total of 150mcg intravenous Fentanyl in multiple divided doses was utilized for moderate sedation. Sedation start time was 1205 and end time was 1241 for a total of 36 minutes [id number] intra-procedure time. Sedation was administered by a qualified observer Milli Silva RN under my supervision with intra-procedure [id number] observation and management throughout the entirety of the procedure. There were no other issues or complications and patient tolerated the procedure well and sedation protocol well and I was present for the entirety. Of note, despite the min of sedation provided patient remains suboptimally sedated at of concern for periods of apnea. Findings: Elective electrical cardioversion: After discussion with the patient he wished to proceed with cardioversion despite the fact that he was largely conscious given his strong desire to attempt cardioversion. Informed of of the expected discomfort which he acknowledged and wished to proceed. Therefore, Confirmation of persistenct of atrial fibrillation, 125 joules synched biphasic energy x1 was delivered without successful baptist of sinus rhythm. Once again after discussion with regards to repeat attempt at cardioversion patient strongly wished to proceed once again acknowledged higher energy and anticipated great discomfort which accepted and wanted to attempt. Therefore, 200 joules synched biphasic energy x1 was delivered again unfortunately unsuccessful at baptist of sinus rhythm. No further attempts were made. Complications: None Conclusion: Unsuccessful attempt at restoring sinus rhythm despite electrical cardioversion x2. Recommendations: Continue systemic anticoagulation. Increase Toprol XL to 75 mg daily. Discussed addition of antiarrhythmic therapy such as flecainide but he will require noninvasive ischemic evaluation prior to initiation. Patient agreed with plan of care. Will set up as an outpatient for follow-up within 1 month, Lexiscan ECG stress test prior to initiation of flecainide and potential re-attempt at cardioversion if AFib refractory with antiarrhythmic therapy.
== END 2022-03-31 13:55 | disposition home or self-care (01) ==
PROVIDERS: PCP Family Medicine; Visit Provider Internal Medicine Cardiovascular Disease
PROC: 5A2204Z Restoration of Cardiac Rhythm, Single (ICD-10-PCS; principal; 2022-03-31 11:30)
DX: I48.91 Unspecified atrial fibrillation (principal); Z79.01 Long term (current) use of anticoagulants
CPT/HCPCS: 36415; 80048; 83735; 92960; J2250; J2310; J3010; J7030

== ENCOUNTER 2022-05-18 00:43 | Day surgery (SDC) | payer OTHER, SELFPAY ==
[2022-05-17 14:55] VITALS: BMI 35.4
[2022-05-18] VITALS (8 sets, daily range): BP systolic 115–149; BP diastolic 76–100; PULSE 68–84; RESP 14–18; TEMP 36.4; O2SAT 97–100; BMI 34.5
--- NOTE | 2022-05-18 | ECG_ITS ---
Measurements Intervals [place] Rate: 96 P: [place]: 0 QRS: -25 QRSD: 109 T: 26 QT: 381 QTc: 482 Interpretive Statements ATRIAL FIBRILLATION BORDERLINE LEFT AXIS DEVIATION [QRS AXIS < -20] NONSPECIFIC T-WAVE ABNORMALITY ABNORMAL RHYTHM ECG COMPARED TO ECG 05/18/2022 11:31:04 NO SIGNIFICANT CHANGES Electronically Signed On 05-18-2022 15:31:29 [employer] by Tono Morrison M.D.
--- NOTE | 2022-05-18 07:00 | ECG_ITS ---
Measurements Intervals [place] Rate: 84 P: [place]: 0 QRS: -24 QRSD: 109 T: 5 QT: 381 QTc: 451 Interpretive Statements ATRIAL FIBRILLATION BORDERLINE LEFT AXIS DEVIATION [QRS AXIS < -20] ABNORMAL RHYTHM ECG COMPARED TO ECG 03/31/2022 10:06:52 NO SIGNIFICANT CHANGES Electronically Signed On 05-18-2022 15:27:51 [facility] by Tono Morrison M.D.
--- NOTE | 2022-05-18 09:00 | ECG_ITS ---
Measurements Intervals [place] Rate: 92 P: [place]: 0 QRS: -29 QRSD: 111 T: 29 QT: 383 QTc: 474 Interpretive Statements ATRIAL FIBRILLATION BORDERLINE LEFT AXIS DEVIATION [QRS AXIS < -20] MODERATE INTRAVENTRICULAR CONDUCTION DELAY [110+ ms QRS DURATION] MINIMAL VOLTAGE CRITERIA FOR LVH, CONSIDER NORMAL VARIANT [MEETS CRITERIA IN ONE OF: R(aVL), S(V1), R(V5), R(V5/V6)+S(V1)] ABNORMAL RHYTHM ECG COMPARED TO ECG 05/18/2022 09:09:12 NO SIGNIFICANT CHANGES Electronically Signed On 05-18-2022 15:31:00 [employer] by Tono Morrison M.D.
[2022-05-18 09:35] LABS: Anion Gap 6 mmol/L (8-16); Blood Urea Nitrogen 17 mg/dL (9-20); Calcium 9.1 mg/dL (8.4-10.2); Carbon Dioxide 30 mmol/L (22-30); Chloride 101 mmol/L (98-107); Estimated CRCL calculation 106 ml/min; Estimated Glomerular Filt Rate > 60; Glucose 101 mg/dL (65-110); Magnesium 2.1 mg/dL (1.6-2.3); Potassium 4.3 mmol/L (3.4-5.0); Sodium 137 mmol/L (137-145)
--- NOTE | 2022-05-18 10:11 | WPDANESEPPF ---
Anes - Initial Pre Proc Eval Procedure: Operation Date: 05/18/22 11:00 Proposed Procedures p Electrical Cardioversion - Tono Morrison MD Date/Time: 05/18/22 10:11 Surgeon: Tono Morrison MD Pre Op Diagnosis: a-fib Patient Data Age: 61 Gender: M Height: 1.88 m Weight: 122 kg Last Vital Signs Temp 97.6 F 05/18/22 09:09 Pulse 81 05/18/22 09:09 Resp 16 05/18/22 09:09 BP 130/86 05/18/22 09:09 Pulse Ox 98 05/18/22 09:09 O2 Del Method Room Air 05/18/22 09:09 Allergies Allergy/AdvReac Type Severity Reaction Status Date / Time morphine Allergy Unknown Unknown Verified 05/17/22 15:21 Home Medications Medication Instructions Recorded Confirmed Type levalbuterol tartrate 45 2 inh inhalation Q6H PRN Shortness 07/22/20 05/17/22 History mcg/actuation aerosol inhaler Of Breath (Xopenex HFA) fluticasone propionate 50 2 spray intranasal DAILY PRN 11/15/21 05/17/22 Rx mcg/actuation nasal Allergy Symptoms #16 grams spray,suspension apixaban 5 mg tablet (Eliquis) 5 mg PO BID 03/30/22 05/18/22 History fluticasone 100 mcg-salmeterol 50 See Rx Instructions .Route 03/30/22 05/18/22 History mcg/dose blistr powdr for .COMPLEX PRN Shortness Of Breath inhalation (Advair Diskus) Or Wheezing multivit with minerals-iron 18 1 tablet PO DAILY 03/30/22 05/17/22 History mg-folic ac 400 mcg-vit K 25 mcg tablet (Adults Multivitamin) metoprolol succinate 100 mg 75 mg PO DAILY #30 tabs 03/31/22 05/17/22 Rx tablet,extended release 24 hr lisinopril 20 mg tablet See Rx Instructions .Route 05/16/22 05/17/22 Rx .COMPLEX #90 tabs flecainide 50 mg tablet 50 mg PO BID 05/17/22 05/18/22 History Laboratory Tests 05/18/22 09:04 Sodium 137 mmol/L mmol/L (137-145) Potassium 4.3 mmol/L mmol/L (3.4-5.0) Chloride 101 mmol/L mmol/L (98-107) Carbon Dioxide 30 mmol/L mmol/L (22-30) Anion Gap 6 mmol/L L mmol/L (8-16) BUN 17 mg/dL mg/dL (9-20) Creatinine 0.90 mg/dL mg/dL (0.7-1.3) Estim Creat Clear Calc 106 ml/min ml/min Estimated GFR > 60 (59 - ) Glucose 101 mg/dL mg/dL (65-110) Calcium 9.1 mg/dL mg/dL (8.4-10.2) Magnesium 2.1 mg/dL mg/dL (1.6-2.3) Patient hx anesthesia problems: none Family hx anesthesia problems: none Results Review: All pre-operative results and documents have been reviewed as part of the pre-operative evaluation. [facility] Past Medical History Medical History Anxiety Asthma Bronchitis Collar bone fracture Diverticulosis Eczema GERD (gastroesophageal reflux disease) History of pneumonia HTN (hypertension) Hx: UTI (urinary tract infection) Mild persistent asthma PAT (paroxysmal atrial tachycardia) Prostate cancer PVC (premature ventricular contraction) Seasonal allergic rhinitis SVT (supraventricular tachycardia) Surgical History Surgical History History of appendectomy Family History Family History Mother Hypertension Sibling Hypertension Father Family history of gybiw-8-dvxslomqnfu deficiency Hypertension Acute myocardial infarction Cerebrovascular accident Social History Social History Smoking status: Never smoker Smoking end date: 02/16/02 Alcohol intake: former Alcohol use details: rarely drinks Substance use: never Substance use type: does not use Living arrangements: with family Additional living arrangements comments: with son Occupation/Education: occupation Gender identity (if verbalized by the patient): Male Spiritual care concerns: No Anes - Eval Final PreProcedure Day of Procedure 05/18/22 10:11 Patient weight: obese Heart: regular rate and rhythm Lungs: clear to auscultation Airway: Mallampati scale cl
--- NOTE | 2022-05-18 10:47 | PM.IMHP ---
H&P: HPI History of Present Illness Date/Time: 05/18/22 10:47 Chief Complaint: Atrial fibrillation Narrative: Patient is a 61-year-old male with a history of atrial fibrillation who presents for an outpatient elective DCCV. Patient is feeling well this morning and is without complaints. Has been compliant with his NOAC, has not missed any doses. Review of Systems Review of Systems: 12 point ROS obtained. Negative, unless stated in HPI. [facility] Past Medical History Medical History Anxiety Asthma Bronchitis Collar bone fracture Diverticulosis Eczema GERD (gastroesophageal reflux disease) History of pneumonia HTN (hypertension) Hx: UTI (urinary tract infection) Mild persistent asthma PAT (paroxysmal atrial tachycardia) Prostate cancer PVC (premature ventricular contraction) Seasonal allergic rhinitis SVT (supraventricular tachycardia) Surgical History Surgical History History of appendectomy Family History Family History Mother Hypertension Sibling Hypertension Father Family history of zcepz-7-qzxmqtutnki deficiency Hypertension Acute myocardial infarction Cerebrovascular accident Social History Social History Smoking status: Never smoker Smoking end date: 02/16/02 Alcohol intake: former Alcohol use details: rarely drinks Substance use: never Substance use type: does not use Living arrangements: with family Additional living arrangements comments: with son Occupation/Education: occupation Gender identity (if verbalized by the patient): Male Spiritual care concerns: No Meds Home Medications and Allergies Home Medications Medication Instructions Recorded Confirmed Type levalbuterol tartrate 45 2 inh inhalation Q6H PRN Shortness 07/22/20 05/17/22 History mcg/actuation aerosol inhaler Of Breath (Xopenex HFA) fluticasone propionate 50 2 spray intranasal DAILY PRN 11/15/21 05/17/22 Rx mcg/actuation nasal Allergy Symptoms #16 grams spray,suspension apixaban 5 mg tablet (Eliquis) 5 mg PO BID 03/30/22 05/18/22 History fluticasone 100 mcg-salmeterol 50 See Rx Instructions .Route 03/30/22 05/18/22 History mcg/dose blistr powdr for .COMPLEX PRN Shortness Of Breath inhalation (Advair Diskus) Or Wheezing multivit with minerals-iron 18 1 tablet PO DAILY 03/30/22 05/17/22 History mg-folic ac 400 mcg-vit K 25 mcg tablet (Adults Multivitamin) metoprolol succinate 100 mg 75 mg PO DAILY #30 tabs 03/31/22 05/17/22 Rx tablet,extended release 24 hr lisinopril 20 mg tablet See Rx Instructions .Route 05/16/22 05/17/22 Rx .COMPLEX #90 tabs flecainide 50 mg tablet 50 mg PO BID 05/17/22 05/18/22 History Allergies Allergy/AdvReac Type Severity Reaction Status Date / Time morphine Allergy Unknown Unknown Verified 05/17/22 15:21 Vital Signs Vital Signs - 24 hr 05/18/22 09:09 Temperature 36.4 C Pulse Rate 81 Respiratory Rate 16 Blood Pressure 130/86 Pulse Oximetry 98 Oxygen Delivery Room Air Exam Const: General: comfortable and no acute distress HENMT: Mouth: Yes moist mucous membranes Eyes: General: appearance normal, both eyes and all related structures Sclera: sclerae normal Neck: Neck: supple Resp: Effort & Inspection: normal respiratory effort Auscultation: clear to auscultation bilaterally Cardio: Rhythm: abnormal rhythm irregularly irregular GI: GI Palp: Yes Soft to palpation and No Tenderness to palpation present (GI) Skin: General skin exam: normal color Neuro: Speech: normal speech Extrem: General: normal to inspection Psych: Mental Status: mental status grossly normal Affect: normal affect H&P: Results Labs Labs: [facility] 05/18/22 09:04 Sodium 137 Potassium 4.3 Chloride 101 Carbon Dioxide 30
--- NOTE | 2022-05-18 10:50 | P.PCNCVR_ITS ---
Cardioversion Cardioversion Date of procedure: 05/18/22 Procedure: Synchronized electrical cardioversion Pre-op diagnosis: Atrial fibrillation Post-op diagnosis: Same Indications: Atrial fibrillation Description of procedure: Patient arrived as an outpatient to the chest pain center. Procedure discussed with the patient, including risks vs benefits, alternative management options. Patient agreed to proceed, and written informed consent was obtained. Pre- procedure EKG confirmed atrial fibrillation. Patient was then brought down to the GI lab for his cardioversion. Defibrillator pads placed in an anterior posterior position. Time out performed. Sedation administered by the anesthesia team. Patient was hemodynamically monitored throughout the procedure, and remained hemodynamically stable throughout the procedure. Once patient was adequately sedation, synchronized cardioversion was performed with 250J. First shock did not convert to sinus rhythm, he remained in atrial fibrillation. Administered a second shock at 300J, but he remained in atrial fibrillation. Administered a third shock at 360J, but failed to convert. Procedure concluded after third shock. Start time: 11:25 End time: 11:38 Sedation: As per Anesthesia team Findings: Unsuccessful synchronized electrical cardioversion, despite 3 shocks. Patient remains in atrial fibrillation. Conclusion: Unsuccessful synchronized electrical cardioversion, despite 3 shocks. Patient remains in atrial fibrillation.
== END 2022-05-18 12:50 | disposition home or self-care (01) ==
PROVIDERS: PCP Family Medicine; Visit Provider Internal Medicine
PROC: 5A2204Z Restoration of Cardiac Rhythm, Single (ICD-10-PCS; principal; 2022-05-18 11:00)
DX: I48.91 Unspecified atrial fibrillation (principal); I10 Essential (primary) hypertension; I49.3 Ventricular premature depolarization; I47.1 Supraventricular tachycardia; J45.909 Unspecified asthma, uncomplicated; Z85.46 Personal history of malignant neoplasm of prostate; Z79.51 Long term (current) use of inhaled steroids; Z79.01 Long term (current) use of anticoagulants
CPT/HCPCS: 36415; 80048; 83735; 92960; J2704; J7030